=== PATIENT | female | born 1980 | race Two or more races ===

== ENCOUNTER 2019-09-04 11:50 | Outpatient (CLI) | payer OTHER ==
[~2019-09-04] VITALS: Ht 162.6 cm; Wt 77.3 kg
[2019-09-04 12:00] VITALS: BP 107/66
[2019-09-04] MEDS ORDERED: PREN1TAB60 PO (12:17)
[2019-09-04] MEDS ORDERED: DOCU-131 PO (12:17)
[2019-09-04] MEDS ORDERED: IRON1TAB60 PO (12:17)
== END 2019-09-04 13:12 | disposition home or self-care (01) ==
LOC: LDOP 11:50
PROVIDERS: ATTEND Obstetrics & Gynecology
DX: O09.523 Supervision of elderly multigravida, third trimester (principal); O36.8130 Decreased fetal movements, third trimester, not applicable or unspecified; Z3A.38 38 weeks gestation of pregnancy
CPT/HCPCS: 59025; 76819; 99211; G0463

== ENCOUNTER 2019-09-11 08:38 | Inpatient (IN) | payer OTHER ==
[~2019-09-11] VITALS: Ht 162.6 cm; Wt 77.3 kg
[~2019-09-11 08:38] MED LIST: DOCU-131 PO; IRON1TAB60 PO; PREN1TAB60 PO
[2019-09-11] MEDS ORDERED: NEWBORN KIT ONE (08:47)
[2019-09-11] MEDS ORDERED: MISOPROSTOL 200 MCG TABLET ONE ×2 (08:48→08:53)
[2019-09-11] MEDS ORDERED: OXYTOCIN 30U/ 0.9% NaCL 500ML 500 ML ONE (08:48)
[2019-09-11] MEDS ORDERED: LIDOCAINE 1%, 20ML ONE ×2 (08:48→08:53)
[2019-09-11] MEDS ORDERED: LACTATED RINGERS 1,000 ML IV SCH (08:59)
[2019-09-11] MEDS ORDERED: OXYTOCIN 30U/ 0.9% NaCL 500ML 500 ML IV ONE (08:59)
[2019-09-11] MEDS ORDERED: D5%-LACTATED RINGERS 1,000 ML IV SCH (08:59)
[2019-09-11] MEDS ORDERED: TERBUTALINE 1 MG/ML, 1ML IVPush PRN (09:00)
[2019-09-11] MEDS ORDERED: TERBUTALINE 1 MG/ML, 1ML SQ PRN (09:00)
[2019-09-11] MEDS ORDERED: FENTANYL PF 100 MCG/2ML IVPush PRN (09:00)
[2019-09-11] MEDS ORDERED: ONDANSETRON 2MG/ML, 2ML IVPush PRN (09:00)
[2019-09-11] MEDS ORDERED: FENTANYL PF 100 MCG/2ML IV PRN (09:00)
[2019-09-11 09:27] LABS: BASOPHILS # (AUTO) 0.02 x10^3/uL (0-0.1); BASOPHILS % (AUTO) 0 % (0-1); EOSINOPHILS % (AUTO) 0 % (1-7); LYMPHOCYTES # (AUTO) 1.47 x10^3/uL (1-3.4); LYMPHOCYTES % (AUTO) 21 % (22-44); MD NO; MEAN CORPUSCULAR HEMOGLOBIN 25.1 pg (27.0-34.8); MEAN CORPUSCULAR HGB CONC 32.3 g/dL (32.4-35.8); MEAN CORPUSCULAR VOLUME 77.9 fL (80-100); MEAN PLATELET VOLUME 8.8 fL (7.4-10.4); MONOCYTES # (AUTO) 0.28 x10^3/uL (0.2-0.8); MONOCYTES % (AUTO) 4 % (2-9); NEUTROPHILS # (AUTO) 5.37 x10^3/uL (1.8-6.8); NEUTROPHILS % (AUTO) 75 % (42-75); PLATELET COUNT 234 x10^3/uL (130-400); RED BLOOD COUNT 5.72 x10^6/uL (3.82-5.3); RED CELL DISTRIBUTION WIDTH 21.9 % (9.6-15.2)
[2019-09-11] MEDS ORDERED: IBUPROFEN 600 MG TABLET ONE (10:06)
[2019-09-11] MEDS: IBUPROFEN 600 MG TABLET PO PRN ×3 (10:13→23:46)
[2019-09-11] MEDS: OXYTOCIN 30U/ 0.9% NaCL 500ML 500 ML IV SCH ×2 (11:12→21:12)
[2019-09-11] MEDS ORDERED: OXYcodone/APAP 5/325MG TABLET PO PRN ×2 (11:30)
[2019-09-11] MEDS ORDERED: DOCUSATE 100 MG CAPSULE PO PRN (11:30)
[2019-09-11] MEDS ORDERED: MISOPROSTOL 200 MCG TABLET PR PRN (11:30)
[2019-09-11] MEDS ORDERED: SIMETHICONE 80 MG CHEW TAB PO PRN (11:30)
[2019-09-11 12:00] VITALS: BP 124/75
[2019-09-11 16:00] VITALS: BP 128/78
[2019-09-11 19:10] VITALS: BP 102/62
[2019-09-11 19:16] LABS: BASOPHILS # (AUTO) 0.03 x10^3/uL (0-0.1); BASOPHILS % (AUTO) 0 % (0-1); EOSINOPHILS # (AUTO) 0.01 x10^3/uL (0-0.4); EOSINOPHILS % (AUTO) 0 % (1-7); LYMPHOCYTES # (AUTO) 1.39 x10^3/uL (1-3.4); LYMPHOCYTES % (AUTO) 17 % (22-44); MD NO; MEAN CORPUSCULAR HEMOGLOBIN 25.3 pg (27.0-34.8); MEAN CORPUSCULAR HGB CONC 32.8 g/dL (32.4-35.8); MEAN CORPUSCULAR VOLUME 77.2 fL (80-100); MEAN PLATELET VOLUME 8.9 fL (7.4-10.4); MONOCYTES # (AUTO) 0.47 x10^3/uL (0.2-0.8); MONOCYTES % (AUTO) 6 % (2-9); NEUTROPHILS # (AUTO) 6.47 x10^3/uL (1.8-6.8); NEUTROPHILS % (AUTO) 77 % (42-75); PLATELET COUNT 199 x10^3/uL (130-400); RED BLOOD COUNT 4.69 x10^6/uL (3.82-5.3); RED CELL DISTRIBUTION WIDTH 21.9 % (9.6-15.2)
[2019-09-11 23:45] VITALS: BP 103/69
[2019-09-12 03:45] VITALS: BP 111/73
[2019-09-12] MEDS: OXYTOCIN 30U/ 0.9% NaCL 500ML 500 ML IV SCH (07:12)
[2019-09-12 07:30] VITALS: BP 118/75
[2019-09-12] MEDS ORDERED: PRENATAL VIT/IRON/FA 1 EACH TABLET PO SCH (09:00)
== END 2019-09-12 15:05 | disposition home or self-care (01) | DRG 807 ==
LOC: LDOP 08:38 → LDIP 08:53 → 2NW 11:47
PROVIDERS: ADMIT Obstetrics & Gynecology; ATTEND Obstetrics & Gynecology
PROC: 10E0XZZ Delivery of Products of Conception, External Approach (ICD-10-PCS; principal; 2019-09-11)
PROC: 0HQ9XZZ Repair Perineum Skin, External Approach (ICD-10-PCS; 2019-09-11)
PROC: 10907ZC Drainage of Amniotic Fluid, Therapeutic from Products of Conception, Via Natural or Artificial Opening (ICD-10-PCS; 2019-09-11)
DX: O69.5XX0 Labor and delivery complicated by vascular lesion of cord, not applicable or unspecified (principal); Z37.0 Single live birth; O70.0 First degree perineal laceration during delivery; Z3A.38 38 weeks gestation of pregnancy
CPT/HCPCS: 36415; 85025; 86592; 86850; 86900; G0378

== ENCOUNTER 2019-11-19 10:03 | Day surgery (SDC) | payer OTHER ==
[2019-11-17 10:37] LABS: BASOPHILS # (AUTO) 0.03 x10^3/uL (0-0.1); BASOPHILS % (AUTO) 0 % (0-1); EOSINOPHILS # (AUTO) 0.37 x10^3/uL (0-0.4); EOSINOPHILS % (AUTO) 6 % (1-7); LYMPHOCYTES % (AUTO) 37 % (22-44); MD NO; MEAN CORPUSCULAR HGB CONC 33.8 g/dL (32.4-35.8); MEAN CORPUSCULAR VOLUME 85.9 fL (80-100); MEAN PLATELET VOLUME 7.9 fL (7.4-10.4); MONOCYTES # (AUTO) 0.44 x10^3/uL (0.2-0.8); MONOCYTES % (AUTO) 7 % (2-9); NEUTROPHILS # (AUTO) 3.07 x10^3/uL (1.8-6.8); NEUTROPHILS % (AUTO) 50 % (42-75); PLATELET COUNT 266 x10^3/uL (130-400); RED CELL DISTRIBUTION WIDTH 19.1 % (9.6-15.2)
[~2019-11-19] VITALS: Ht 162.6 cm; Wt 69.0 kg
[~2019-11-19 10:03] MED LIST changes: +ASCO1CAP2 PO; +ASCO1TAB15 PO
[2019-11-19] MEDS ORDERED: LACTATED RINGERS 1,000 ML IV SCH (10:14)
[2019-11-19] MEDS ORDERED: CHLORHEXIDINE 15 ML UDC MM ONE (10:16)
[2019-11-19] MEDS ORDERED: CHLORHEXIDINE 15 ML UDC ONE (10:21)
[2019-11-19 10:28] VITALS: BP 107/75
[2019-11-19] MEDS ORDERED: BUPIVACAINE/PF 0.25% ONE (11:23)
[2019-11-19] MEDS ORDERED: EPINEPHRINE 1 MG/ML, 1ML ONE (11:23)
[2019-11-19] MEDS ORDERED: SILVER NITRATE STICK TP ONE (11:24)
[2019-11-19] MEDS ORDERED: MIDAZOLAM 1 MG/ML, 2ML ONE (12:15)
[2019-11-19] MEDS ORDERED: FENTANYL PF 250 MCG/5ML ONE (12:16)
[2019-11-19] MEDS ORDERED: PROPOFOL 10 MG/ML, 20ML ONE (12:17)
[2019-11-19] MEDS ORDERED: ROCURONIUM 10MG/ML,5ML ONE (12:17)
[2019-11-19] MEDS ORDERED: SUCCINYLCHOLINE 20 MG/ML, 10ML ONE (12:18)
[2019-11-19] MEDS ORDERED: CEFAZOLIN 1,000 MG ONE (12:18)
[2019-11-19] MEDS ORDERED: KETOROLAC 30 MG/1 ML ONE (12:18)
[2019-11-19] MEDS ORDERED: DEXAMETHASONE 4 MG/ML, 1ML ONE ×2 (12:18)
[2019-11-19] MEDS ORDERED: ONDANSETRON 2MG/ML, 2ML ONE ×2 (13:14)
[2019-11-19] MEDS ORDERED: SUGAMMADEX 200 MG/2 ML IVPush ONE (13:14)
[2019-11-19] MEDS ORDERED: OXYcodone 5 MG/5 ML ORAL.SOL UDC PO PRN (13:30)
[2019-11-19] MEDS ORDERED: DIPHENHYDRAMINE 50 MG/ML, 1ML IVPush PRN (13:30)
[2019-11-19] MEDS ORDERED: HYDROmorphone 1 MG/ML, 1ML INJ IVPush PRN (13:30)
[2019-11-19] MEDS ORDERED: PROMETHAZINE 25 MG/ML, 1ML IVPush PRN (13:30)
[2019-11-19] MEDS ORDERED: MEPERIDINE/PF 25MG/0.5ML IVPush PRN (13:30)
[2019-11-19] MEDS ORDERED: hydrALAzine 20 MG/ML, 1ML IV PRN (13:30)
[2019-11-19] MEDS ORDERED: PROMETHAZINE 12.5 MG SUPP PR PRN (13:30)
[2019-11-19] MEDS ORDERED: EPHEDRINE 50 MG/ML, 1ML IVPush PRN (13:30)
[2019-11-19] MEDS ORDERED: FENTANYL PF 100 MCG/2ML IV PRN (13:30)
[2019-11-19] MEDS ORDERED: MIDAZOLAM 1 MG/ML, 2ML IV PRN (13:30)
[2019-11-19] MEDS ORDERED: LABETALOL 5MG/ML, 20ML IV PRN (13:30)
[2019-11-19] MEDS ORDERED: ACETAMINOPHEN 325 MG TABLET PO PRN (13:30)
[2019-11-19] MEDS ORDERED: DIAZEPAM 5 MG/ML, 2ML IVPush PRN (13:30)
[2019-11-19] MEDS ORDERED: ALBUTEROL SULFATE 2.5 MG/3 ML NPPB PRN (13:30)
[2019-11-19] MEDS ORDERED: ONDANSETRON 2MG/ML, 2ML IVPush PRN (13:30)
[2019-11-19] MEDS ORDERED: MEPERIDINE/PF 25MG/ML,1ML ONE (13:43)
== END 2019-11-19 17:10 | disposition home or self-care (01) ==
LOC: OUT 10:03 → EDSTATUS 12:00 → OUT 17:10
PROVIDERS: ATTEND Obstetrics & Gynecology
DX: Z30.2 Encounter for sterilization (principal); Z11.59 Encounter for screening for other viral diseases; E66.9 Obesity, unspecified; Z79.899 Other long term (current) drug therapy; Z98.84 Bariatric surgery status
CPT/HCPCS: 36415; 58670; 84703; 85025; 86850; 86900; 88302; J0171; J0330; J0690; J1100; J1885; J2175; J2250; J2405; J2704; J3010; J3490; J7120; U0001